=== PATIENT | female | born 1980 | race Caucasian/White ===

== ENCOUNTER 2018-11-01 14:51 | Emergency (ER) | payer SELFPAY ==
[2018-11-01] MEDS ORDERED: DIAZ-308 PO (15:00)
[2018-11-01] MEDS ORDERED: levETIRAcetam 500 MG TAB PO ONE (15:10)
--- NOTE | 2018-11-01 15:10 | ER Report ---
History and Physical Time Seen By MD: 15:07 Hx. of Stated Complaint: SEIZURES HPI/ROS CHIEF COMPLAINT: Seizure HISTORY OF PRESENT ILLNESS: 38-year-old female was visiting her boyfriend in long term when she had a witnessed seizure. 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 Patient states she had a normal seizure activity she is currently taking Valium for seizure prophylaxis unclear if this is been prescribed her this was recreational. Patient states that she has no physical complaints this had a little bit sore muscles but otherwise did not hit her head or neck or loss of consciousness no additional findings of note REVIEW OF SYSTEMS: Respiratory: No cough, no dyspnea. Cardiovascular: No chest pain, no palpitations. Gastrointestinal: No vomiting, no abdominal pain. Musculoskeletal: No back pain. Remainder of the 14 system rev: Yes Allergies: Coded Allergies: Penicillins (Verified Allergy, Severe, THROAT CLOSES, 11/01/18) Home Meds Reported Medications Diazepam (DIAZEPAM) 5 Mg Tablet, 5 MG PO 2-3XD, #15 TAB 11/01/18 Reviewed Nurses Notes: Yes Old Medical Records Reviewed: Yes Constitutional Vital Sign - Last 24 Hours 11/01/18 14:52 Temp 98.7 Pulse 73 Resp 12 B/P (MAP) 118/76 Pulse Ox 94 O2 Delivery Room Air Physical Exam General Appearance: The patient is alert, has no immediate need for airway protection and no current signs of toxicity. At baseline Eyes: Pupils equal and round no injection. Respiratory: Chest is non tender, lungs are clear to auscultation. Cardiac: regular rate and rhythm [ ] Gastrointestinal: Abdomen is soft and non tender, no masses, bowel sounds norm al. Musculoskeletal: Neck: Neck is supple and non tender. Extremities have full range of motion and are non tender. Skin: No rashes or lesions. Oral examination patient has significant dental abnormalities dental caries dental loss of teeth significant and consistent with methamphetamine abuse DIFFERENTIAL DIAGNOSIS: After history and physical exam differential diagnosis was considered for seizure seizure disorder Medical Decision Making Data Points Laboratory Hematology Test 11/01/18 15:17 Urine Color Straw Urine Clarity Clear Urine pH 6.0 pH (4.8-9.5) Urine Specific [place] 1.002 Urine Protein Negative mg/dL (NEGATIVE) Urine Glucose (UA) Negative mg/dL (NEGATIVE) Urine Ketones Negative mg/dL (NEGATIVE) Urine Blood Negative (NEGATIVE) Urine Nitrite Negative (NEGATIVE) Urine Bilirubin Negative (NEGATIVE) Urine Urobilinogen Negative mg/dL (0.2-1.9) Urine Leukocyte Esterase Negative (NEGATIVE) Urine RBC 1 /HPF (0-2/HPF) Urine WBC <1 /HPF (0-5/HPF) Urine Squamous Epithelial Cells Moderate /LPF (</=FEW) Urine Bacteria Few /HPF (NONE-FEW) Urine Mucus None /HPF (NONE-FEW) Urine Opiates Screen Negative Urine Barbiturates Screen Negative Ur Tricyclic Antidepressants Screen Negative Urine Phencyclidine Screen Negative Urine Amphetamines Screen Negative Urine Benzodiazepines Screen Positive Urine Cocaine Screen Negative Urine Cannabinoids Screen Positive Chemistry Test 11/01/18 15:17 Urine Color Straw Urine Clarity Clear Urine pH 6.0 pH (4.8-9.5) Urine Specific [place] 1.002 Urine Protein Negative mg/dL (NEGATIVE) Urine Glucose (UA) Negative mg/dL (NEGATIVE) Urine Ketones Negative mg/dL (NEGATIVE) Urine Blood Negative (NEGATIVE) Urine Nitrite Negative (NEGATIVE) Urine Bilirubin Negative (NEGATIVE) Urine Urobilinogen Negative mg/dL (0.2-1.9) Urine Leukocyte Esterase Negative (NEGATIVE) Urine RBC 1 /HPF (0-2/HPF) Urine WBC <1 /HPF (0-5/HPF) Urine Squamous Epithelial Cells Moderate /LPF (</=FEW) Urine Bacteria Few /HPF (NONE-FEW) Urine Mucus None /HPF (NONE-FEW) Urine Opiates Screen Negative Urine Barbiturates Screen Negative Ur Tricyclic Antidepressants Screen Negative Urine Phencyclidine Screen Negative Urine Amphetamines Screen Negative Urine Benzodiazepines Screen Positive Urine Cocaine Screen Negative Urine Cannabinoids Screen Positive Toxicology Test 11/01/18 15:17 Urine Opiates Screen Negative Urine Barbiturates Screen Negative Ur Tricyclic Antidepressants Screen Negative Urine Phencyclidine Screen Negative Urine Amphetamines Screen Negative Urine Benzodiazepines Screen Positive Urine Cocaine Screen Negative Urine Cannabinoids Screen Positive Urinalysis Test 11/01/18 15:17 Urine Color Straw Urine Clarity Clear Urine pH 6.0 pH (4.8-9.5) Urine Specific [place] 1.002 Urine Protein Negative mg/dL (NEGATIVE) Urine Glucose (UA) Negative mg/dL (NEGATIVE) Urine Ketones Negative mg/dL (NEGATIVE) Urine Blood Negative (NEGATIVE) Urine Nitrite Negative (NEGATIVE) Urine Bilirubin Negative (NEGATIVE) Urine Urobilinogen Negative mg/dL (0.2-1.9) Urine Leukocyte Esterase Negative (NEGATIVE) Urine RBC 1 /HPF (0-2/HPF) Urine WBC <1 /HPF (0-5/HPF) Urine Squamous Epithelial Cells Moderate /LPF (</=FEW) Urine Bacteria Few /HPF (NONE-FEW) Urine Mucus None /HPF (NONE-FEW) ED Course/Re-evaluation ED Course 38-year-old female had a witnessed seizure she has a known history of seizure and seizure disorder advised to continue benzos RK have her follow-up with primary care no additional tests or imaging required as she has a baseline diagnosis observed the patient and the ER for approximately 1 hour and 40 minutes without any activity here some Tylenol for her headache patient would discharge diagnosis seizure Decision to Disposition Date: November 01, 2018 Decision to Disposition Time: 16:10 Depart Departure Latest Vital Signs Vital Signs Date Time Temp Pulse Resp B/P (MAP) Pulse Ox O2 Delivery O2 Flow Rate FiO2 11/01/18 14:52 98.7 73 12 118/76 94 Room Air Impression: Primary Impression: Seizure Condition: Improved Disposition: HOME OR SELF-CARE Referrals: NIKHIL WEBBER MD 5 Days Patient Instructions: Recurrent Seizures in Adults (DC) CARLOS A DEGROOT MD November 01, 2018 15:10
[2018-11-01] MEDS ORDERED: ACETAMINOPHEN 500 MG TAB PO ONE (16:05)
[2018-11-01 16:15] VITALS: BP 124/83
[2018-11-01] MEDS ORDERED: KETOROLAC 60 MG/2 ML VIAL IM ONE (16:15)
[2018-11-07] MEDS ORDERED: NAPR500T31 PO (14:26)
[2018-11-07] MEDS ORDERED: LEVE500T73 PO (14:26)
== END 2018-11-01 16:45 | disposition home or self-care (01) ==
LOC: ER 14:57
DX: R56.9 Unspecified convulsions (principal)
CPT/HCPCS: 80305; 81001; 96372; 99283; J1885

== ENCOUNTER → 2018-11-01 | Outpatient (CLI) | payer SELFPAY ==
[~2018-11-01] MED LIST: DIAZ-308 PO; LEVE500T73 PO; NAPR500T31 PO
== END ==
LOC: AMB 14:27
PROVIDERS: ATTEND Nurse Practitioner
DX: F41.9 Anxiety disorder, unspecified (principal); R41.0 Disorientation, unspecified; M79.605 Pain in left leg; M79.604 Pain in right leg; R53.1 Weakness
CPT/HCPCS: A0425; A0429

== ENCOUNTER 2018-11-02 20:32 | Emergency (ER) | payer SELFPAY ==
[~2018-11-02 20:32] MED LIST changes: -LEVE500T73 PO; -NAPR500T31 PO
--- NOTE | 2018-11-02 20:38 | ER Report ---
History and Physical Time Seen By MD: 20:33 HPI/ROS CHIEF COMPLAINT: Seizure HISTORY OF PRESENT ILLNESS: 38-year-old female brought in by EMS after having a seizure. EMS and patient described right sided body. Focal seizure, partial seizures. Patient's on no medications. She states that her doctor gave her prophylaxis of Valium to take for prevention of her seizures. Patient's new to the area. Patient has an appointment to follow-up with next week. Patient received 1 mg of Ativan in route by EMS. They also checked her glucose, which was documented at 60 by EMS. Patient states she's not eaten anything all day long. Patient was given 1 amp of dextrose here in the emergency department. Patient's complaining of muscle pain from the seizure primarily in her right leg. Patient denies head impact, neck pain, chest pain, photophobia or fever. REVIEW OF SYSTEMS: Respiratory: No cough, no dyspnea. Cardiovascular: No chest pain, no palpitations. Gastrointestinal: No vomiting, no abdominal pain. Musculoskeletal: No back pain. Allergies: Coded Allergies: Penicillins (Verified Allergy, Severe, THROAT CLOSES, 11/02/18) acetaminophen (Verified Allergy, Mild, 11/02/18) Home Meds Reported Medications Diazepam (DIAZEPAM) 5 Mg Tablet, 5 MG PO 2-3XD, #15 TAB 11/01/18 Past Medical/Surgical History Seizure disorder, history of polysubstance abuse Reviewed Nurses Notes: Yes Old Medical Records Reviewed: Yes Constitutional Vital Sign - Last 24 Hours 11/02/18 11/02/18 11/02/18 11/02/18 20:41 20:41 20:47 21:00 Temp 98.1 Pulse 87 90 Resp 14 11 B/P (MAP) 121/106 121/106 (111) 97/57 (70) Pulse Ox 95 96 O2 Delivery Room Air 11/02/18 11/02/18 11/02/18 11/02/18 21:02 21:07 21:22 21:30 Pulse 94 99 98 Resp 28 12 30 B/P (MAP) 110/72 (85) Pulse Ox 94 96 95 11/02/18 11/02/18 11/02/18 11/02/18 21:37 21:52 22:00 22:07 Pulse 76 84 Resp 17 14 B/P (MAP) 89/55 (66) 112/64 (80) Pulse Ox 95 93 Physical Exam General Appearance: The patient is alert, has no immediate need for airway pro tection and no current signs of toxicity. Mild distress, vital signs stable, afebrile, pulse ox normal on palpation of the head and neck reveal no tenderness or trauma HEENT: Pupils equal and round no injection. TMs normal, oropharynx without redness or exudate, no tongue bite mena or dental trauma noted Respiratory: Chest is non tender, lungs are clear to auscultation. Cardiac: regular rate and rhythm Gastrointestinal: Abdomen is soft and non tender, no masses, bowel sounds normal. Musculoskeletal: Neck: Neck is supple and non tender. No lymphadenopathy, no meningismus Extremities have full range of motion and are non tender. Skin: No rashes or lesions. Neuro alert and oriented 3, cranial nerves II through XII intact motor 5/5 all groups, sensory intact to light touch 4 DIFFERENTIAL DIAGNOSIS: After history and physical exam differential diagnosis was considered for a seizure including but not limited to electrolyte abnormality, alcohol withdrawal, medication noncompliance, head injury, hypoglycemia and breakthrough seizure. Medical Decision Making ED Course/Re-evaluation Clinical Indication for ER IV: IV Access ED Course Patient was admitted to an examination room by EMS. Patient without obvious postictal phase. She does have some tenderness and spasm in her right arm and right lower extremity. Patient states that her normal, partial seizure presentation. She is on no seizure medication. She states she is prescribed Valium for seizure prophylaxis. Patient's new to the area. She was seen in the ER yesterday. Please review that note. Patient was medicated by EMS in the field with Ativan IV. Patient was also noted to have low blood sugar by EMS of 60. She was given 1 amp of D50 IV. She feels much better afterwards. She was observed for an hour and a half without any further seizure activity. She was r esting comfortably in the room. She was discharged home and advised to follow- up with as planned in 5 days. Decision to Disposition Date: November 02, 2018 Decision to Disposition Time: 21:00 Depart Departure Latest Vital Signs Vital Signs Date Time Temp Pulse Resp B/P (MAP) Pulse Ox O2 Delivery O2 Flow Rate FiO2 11/02/18 22:07 112/64 (80) 11/02/18 21:52 84 14 93 11/02/18 20:41 98.1 Room Air Impression: Primary Impression: Seizure Additional Impressions: Seizure disorder Hypoglycemia Condition: Improved Disposition: HOME OR SELF-CARE Patient Instructions: Non-diabetic Hypoglycemia (ED), Recurrent Seizures in Adults (ED) Additional Instructions: Follow-up with as planned Problem Qualifiers ROB NUÑEZ DO November 02, 2018 20:38
[2018-11-02] MEDS ORDERED: DEXTROSE 50% 50 ML SYR IVP ONE (20:40)
[2018-11-02] MEDS ORDERED: KETOROLAC 30 MG/ML VIAL IVP ONE (20:55)
[2018-11-02] MEDS ORDERED: EMS LR(*) 1000 ML BAG 1,000 ML IV ONE (21:05)
[2018-11-02 22:07] VITALS: BP 112/64
[2018-11-07] MEDS ORDERED: LEVE500T73 PO (14:26)
[2018-11-07] MEDS ORDERED: NAPR500T31 PO (14:26)
== END 2018-11-02 22:15 | disposition home or self-care (01) ==
LOC: ER 20:35
DX: G40.909 Epilepsy, unspecified, not intractable, without status epilepticus (principal); E16.2 Hypoglycemia, unspecified; Z79.899 Other long term (current) drug therapy
CPT/HCPCS: 96374; 96375; 99284; J1885; J7120

== ENCOUNTER → 2018-11-02 | Outpatient (CLI) | payer SELFPAY | LOC: AMB 19:54 | PROVIDERS: ATTEND Nurse Practitioner | DX: R56.9 Unspecified convulsions (principal) | CPT/HCPCS: A0425; A0427 ==

== ENCOUNTER → 2018-11-07 | Outpatient (CLI) | payer MEDICAID ==
[~2018-11-07] MED LIST changes: +LEVE500T73 PO; +NAPR500T31 PO
[2018-11-07 15:40] LABS: PLATELET COUNT, AUTOMATED 347 K/uL (150-450)
[2018-11-07 15:48] LABS: LDL CHOLESTEROL 72 mg/dl
== END ==
LOC: LAB 14:25
PROVIDERS: ATTEND Nurse Practitioner Primary Care
DX: G40.909 Epilepsy, unspecified, not intractable, without status epilepticus (principal)
CPT/HCPCS: 36415; 80305; 82040; 82247; 82310; 82374; 82435; 82465; 82565; 82947; 83718; 84075; 84132; 84155; 84295; 84443; 84450; 84460; 84478; 84520; 85025